=== PATIENT | male | born 1990 | race Caucasian/White ===

== ENCOUNTER 2020-01-06 16:39 | Emergency (ER) | payer OTHER, SELFPAY ==
[2020-01-06 17:10] VITALS: BP 132/85; PULSE 60; RESP 18; TEMP 36.7; O2SAT 99; BMI 34.4
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
[2020-01-06 18:24] VITALS: BP 124/81; PULSE 61; RESP 16; TEMP 36.7; O2SAT 98
== END 2020-01-06 18:31 | disposition home or self-care (01) ==
PROVIDERS: Emergency Provider Nurse Practitioner Family
DX: Z04.3 Encounter for examination and observation following other accident (principal)
CPT/HCPCS: 99281

== ENCOUNTER 2022-02-19 06:53 | Emergency (ER) | payer BC, SELFPAY ==
[2022-02-19 07:18] VITALS: BP 123/73; PULSE 57; RESP 16; TEMP 36.4; O2SAT 99; BMI 30.4
[2022-02-19 07:25] VITALS: BP 123/73; PULSE 59; RESP 16; O2SAT 99
--- NOTE | 2022-02-19 07:34 | XR_ITS ---
WS: [id number] XR knee LT 3V* [id number] REASON FOR EXAM: pain FINDINGS: No fracture or focal bone lesion. The joint spaces of the left knee are intact and well preserved. No soft tissue abnormality. XR/XR knee LT 3V* [id number] IMPRESSION: No significant abnormality identified.
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
[2022-02-19 08:07] VITALS: BP 123/73; PULSE 86; O2SAT 99
[2022-02-19 08:15] VITALS: BP 123/73; PULSE 59; RESP 16; O2SAT 99
--- NOTE | 2022-02-19 10:29 | DCPLANNER ---
Addendum entered by Cortney Neal 07/09/22 14:19: Patient had a follow up appointment scheduled with ortho - patient did not attend appointment. Addendum entered by Cortney Neal 02/19/22 15:53: Patient has a follow up appointment scheduled for Friday, April 17, [address]22 at 3:[address] Sanchez at ortho. Clinic will notify patient with appointment information. Original Note: retail department manager had message to schedule a follow up appointment for patient with ortho. retail department manager sent patients information to the front office staff at ortho thru [employer] messaging system. Patients information will be printed and reviewed. Clinic will call patient with appointment information.
== END 2022-02-19 08:17 | disposition home or self-care (01) ==
PROVIDERS: Emergency Provider Family Medicine
DX: M25.562 Pain in left knee (principal); G89.29 Other chronic pain
CPT/HCPCS: 73562; 99282